=== PATIENT | male | born 1925 | race Caucasian/White ===

== ENCOUNTER 2017-03-21 13:35 | Inpatient (IN) ==
[2017-03-21] MEDS ORDERED: ZALEPLON 5 MG CAPSULE PO PRN (15:02)
[2017-03-21] MEDS ORDERED: POTASSIUM CHLORIDE 20 MEQ TABLET PO PRN (15:02)
[2017-03-21] MEDS ORDERED: BISACODYL 5 MG TABLET PO PRN (15:02)
[2017-03-21] MEDS ORDERED: DOCUSATE SODIUM 100 MG CAPSULE PO PRN (15:02)
[2017-03-21] MEDS ORDERED: ONDANSETRON 4 MG/2 ML VIAL IV PRN (15:02)
[2017-03-21] MEDS ORDERED: MAGNESIUM SULF RIDER 2 GM in PREMIX 1 EACH IV PRN (15:02)
[2017-03-21] MEDS ORDERED: MAGNESIUM SULF RIDER 4 GM in PREMIX 1 EACH IV PRN (15:02)
[2017-03-21] MEDS ORDERED: ACETAMINOPHEN 325 MG TABLET PO PRN (15:02)
[2017-03-21] MEDS ORDERED: diphenhydrAMINE CAP 25 MG CAPSULE PO PRN (15:17)
[2017-03-21 15:53] LABS: Basophils % 0.4 % (0.0-0.8); Eosinophils # 0.2 10*3/uL (0.0-0.87); Eosinophils % 2.2 % (0.00-10.9); Hematocrit 47.5 VOL% (42.0-52.0); Hemoglobin 16.2 GM/DL (14.0-18.0); Immature Granulocytes % 0.3 %; Immature Granulocytes Absolute 0.02 #; Lymphocytes % 13.8 % (21.2-54.2); Mean Corpuscular HGB Conc 34.1 GM/DL (32-36); Mean Corpuscular Hemoglobin 30 PG (27-34); Mean Corpuscular Volume 88.5 FL (87-102); Mean Platelet Volume 10.1 FL (9.6-12.0); Monocytes # 0.5 10*3/uL (0.11-0.8); Monocytes % 7.3 % (1.7-12.7); Neutrophils # 5.7 10*3/uL (1.4-7.4); Platelet Count 225 T/CUMM (130-400); Red Blood Count 5.37 MC/CUMM (3.8-5.5); Red Cell Distribution Width 12.2 % (9.3-17.3); White Blood Count 7.4 T/CUMM (4-12)
[2017-03-21 16:33] LABS: CKMB % 6.3 %
[2017-03-21 16:34] LABS: Troponin I Only 0.093 NG/ML (0.00-0.045)
[2017-03-21 16:39] LABS: Apearance,Urine CLEAR (Clear); Bilirubin,Urine Negative (Negative); Blood, Urine Small mg/dL (Negative); Glucose,Urine (UA) Negative (Negative); Ketones,Urine Negative (Negative); Mucus,Urine Occasional /LPF (Occasional); Nitrite,Urine Negative (Negative); Protein,Urine Negative; RBC,Urine 1 /HPF (0-4); Squamous Epithelial Cell,Urine Occasional /HPF (0-10); Urine Color Straw (Yellow); Urine Specific Gravity 1.004 (1.001-1.035); Urine Urobilinogen < 2.0 EU/DL (0.2-1.0); WBC,Urine 15 /HPF (0-6)
[2017-03-21 16:40] LABS: Albumin 3.1 G/DL (3.4-5.0); Calcium 8.8 MG/DL (8.5-10.1); Osmolality,Calculated 277.4 MOS/KG (273-304); Potassium 5.1 MMOL/L (3.5-5.1); Thyroid Stimulating Hormone 3.46 uIU/ml (0.358-3.74); Total Protein 6.3 G/DL (6.4-8.3)
[2017-03-21] MEDS: ALBUTEROL/IPRATROPIUM 3 ML NEB RESP TX SCH ×2 (18:00→20:09)
[2017-03-21] MEDS ORDERED: ASPIRIN 325 MG TABLET PO SCH ×2 (18:00→21:00)
[2017-03-21] MEDS: ALBUTEROL 2.5 MG/3 ML NEB RESP TX SCH ×3 (18:01→23:45)
[2017-03-21] MEDS ORDERED: ENOXAPARIN 80 MG/0.8 ML SYRINGE SUBCUT ONE (18:04)
[2017-03-21] MEDS: NITROGLYCERIN 2% OINT 1 INCH/GM PACK TOP SCH (18:28)
[2017-03-21] MEDS: FUROSEMIDE 40 MG/4 ML VIAL IV SCH (18:29)
[2017-03-21 18:35] LABS: CKMB % 5.6 %
[2017-03-21 18:36] LABS: Troponin I Only 0.187 NG/ML (0.00-0.045)
[2017-03-21] MEDS: PANTOPRAZOLE 40 MG TABLET PO SCH (21:13)
[2017-03-21] MEDS: LOVASTATIN 20 MG TABLET PO SCH (21:13)
[2017-03-21] MEDS: MAGNESIUM HYDROXIDE SUSP 30 ML UDCUP PO SCH (21:13)
[2017-03-21] MEDS: METOPROLOL TARTRATE 25 MG TABLET PO SCH (21:13)
[2017-03-21 22:27] LABS: CKMB % 4.5 %
[2017-03-21 22:31] LABS: Troponin I Only 0.249 NG/ML (0.00-0.045)
[2017-03-21] MEDS ORDERED: ALBUTEROL 2.5 MG/3 ML NEB RESP TX ONE (23:34)
[2017-03-22] MEDS: NITROGLYCERIN 2% OINT 1 INCH/GM PACK TOP SCH ×4 (01:02→17:59)
[2017-03-22] MEDS: ALBUTEROL 2.5 MG/3 ML NEB RESP TX SCH ×2 (03:07→17:10)
[2017-03-22 05:22] LABS: Basophils % 0.4 % (0.0-0.8); Eosinophils # 0.2 10*3/uL (0.0-0.87); Eosinophils % 2.9 % (0.00-10.9); Hematocrit 46.5 VOL% (42.0-52.0); Immature Granulocytes % 0.4 %; Immature Granulocytes Absolute 0.03 #; Lymphocytes # 1.3 10*3/uL (1.4-4.0); Lymphocytes % 16.4 % (21.2-54.2); Mean Corpuscular HGB Conc 34.4 GM/DL (32-36); Mean Corpuscular Hemoglobin 30 PG (27-34); Mean Corpuscular Volume 85.8 FL (87-102); Mean Platelet Volume 10.5 FL (9.6-12.0); Monocytes # 0.7 10*3/uL (0.11-0.8); Neutrophils # 5.6 10*3/uL (1.4-7.4); Neutrophils % 70.9 % (38.7-73.9); Platelet Count 220 T/CUMM (130-400); Red Blood Count 5.42 MC/CUMM (3.8-5.5); Red Cell Distribution Width 12.1 % (9.3-17.3); White Blood Count 7.9 T/CUMM (4-12)
[2017-03-22 05:50] LABS: Bilirubin,Total 1.5 MG/DL (0.2-1.0); Calcium 8.4 MG/DL (8.5-10.1); Osmolality,Calculated 274.7 MOS/KG (273-304); Potassium 3.7 MMOL/L (3.5-5.1); Risk Ratio 3.93; Total Protein 6.3 G/DL (6.4-8.3); VLDL CHOLESTEROL 19.8 MG/DL
[2017-03-22] MEDS: ALBUTEROL/IPRATROPIUM 3 ML NEB RESP TX SCH ×5 (07:25→19:08)
[2017-03-22] MEDS ORDERED: ASPIRIN 325 MG TABLET PO SCH (09:00)
[2017-03-22] MEDS: FUROSEMIDE 40 MG/4 ML VIAL IV SCH ×2 (09:53→17:14)
[2017-03-22] MEDS: PANTOPRAZOLE 40 MG TABLET PO SCH (09:56)
[2017-03-22] MEDS: LEVOTHYROXINE 25 MCG TABLET PO SCH (09:56)
[2017-03-22] MEDS: MAGNESIUM HYDROXIDE SUSP 30 ML UDCUP PO SCH ×2 (09:56→21:03)
[2017-03-22] MEDS: METOPROLOL TARTRATE 25 MG TABLET PO SCH ×2 (09:56→21:01)
[2017-03-22] MEDS: LISINOPRIL 20 MG TABLET PO SCH (09:56)
[2017-03-22] MEDS: ASPIRIN EC 81 MG TABLET PO SCH (10:51)
[2017-03-22] MEDS: LOVASTATIN 20 MG TABLET PO SCH (21:01)
[2017-03-23] MEDS: NITROGLYCERIN 2% OINT 1 INCH/GM PACK TOP SCH ×4 (01:48→18:35)
[2017-03-23] MEDS: ALBUTEROL/IPRATROPIUM 3 ML NEB RESP TX SCH ×7 (06:15→23:31)
[2017-03-23] MEDS: LEVOTHYROXINE 25 MCG TABLET PO SCH (06:26)
[2017-03-23] MEDS: FUROSEMIDE 40 MG/4 ML VIAL IV SCH ×2 (09:17→17:12)
[2017-03-23] MEDS: ASPIRIN EC 81 MG TABLET PO SCH (09:18)
[2017-03-23] MEDS: MAGNESIUM HYDROXIDE SUSP 30 ML UDCUP PO SCH ×2 (09:18→21:16)
[2017-03-23] MEDS: METOPROLOL TARTRATE 25 MG TABLET PO SCH ×2 (09:18→21:14)
[2017-03-23] MEDS: LISINOPRIL 20 MG TABLET PO SCH (09:18)
[2017-03-23] MEDS: PANTOPRAZOLE 40 MG TABLET PO SCH (09:18)
[2017-03-23] MEDS: methylPREDNISolone SOD SUC 40 MG/1 ML VIAL IV SCH ×2 (12:50→17:11)
[2017-03-23] MEDS: LOVASTATIN 20 MG TABLET PO SCH (21:14)
[2017-03-24] MEDS: NITROGLYCERIN 2% OINT 1 INCH/GM PACK TOP SCH ×3 (01:21→11:31)
[2017-03-24] MEDS: methylPREDNISolone SOD SUC 40 MG/1 ML VIAL IV SCH ×4 (01:44→19:00)
[2017-03-24] MEDS: ALBUTEROL/IPRATROPIUM 3 ML NEB RESP TX SCH ×5 (04:48→20:38)
[2017-03-24] MEDS: LEVOTHYROXINE 25 MCG TABLET PO SCH (06:12)
[2017-03-24] MEDS: LISINOPRIL 20 MG TABLET PO SCH (09:04)
[2017-03-24] MEDS: ASPIRIN EC 81 MG TABLET PO SCH (09:04)
[2017-03-24] MEDS: METOPROLOL TARTRATE 25 MG TABLET PO SCH ×2 (09:04→21:31)
[2017-03-24] MEDS: MAGNESIUM HYDROXIDE SUSP 30 ML UDCUP PO SCH ×2 (09:04→21:35)
[2017-03-24] MEDS: FUROSEMIDE 40 MG/4 ML VIAL IV SCH ×2 (09:05→16:27)
[2017-03-24] MEDS: PANTOPRAZOLE 40 MG TABLET PO SCH (09:05)
[2017-03-24] MEDS: ISOSORBIDE MONONITRATE 30 MG TABLET PO SCH (14:02)
[2017-03-24] MEDS: LOVASTATIN 20 MG TABLET PO SCH (21:31)
[2017-03-25] MEDS: ALBUTEROL/IPRATROPIUM 3 ML NEB RESP TX SCH ×6 (01:05→21:02)
[2017-03-25] MEDS: methylPREDNISolone SOD SUC 40 MG/1 ML VIAL IV SCH ×3 (01:55→19:16)
[2017-03-25] MEDS: LEVOTHYROXINE 25 MCG TABLET PO SCH (06:30)
[2017-03-25] MEDS ORDERED: guaiFENesin/DM ER 600-30 MG TABLET PO PRN (14:46)
[2017-03-25] MEDS: ISOSORBIDE MONONITRATE 30 MG TABLET PO SCH (15:06)
[2017-03-25] MEDS: LISINOPRIL 20 MG TABLET PO SCH (15:06)
[2017-03-25] MEDS: PANTOPRAZOLE 40 MG TABLET PO SCH (15:06)
[2017-03-25] MEDS: ASPIRIN EC 81 MG TABLET PO SCH (15:06)
[2017-03-25] MEDS: FUROSEMIDE 40 MG TABLET PO SCH (15:06)
[2017-03-25] MEDS: METOPROLOL TARTRATE 25 MG TABLET PO SCH ×2 (15:06→20:57)
[2017-03-25] MEDS: MAGNESIUM HYDROXIDE SUSP 30 ML UDCUP PO SCH ×2 (15:07→20:59)
[2017-03-25 16:45] LABS: Apearance,Urine Slightly Hazy (Clear); Bacteria,Urine Moderate /HPF (Few); Bilirubin,Urine Negative (Negative); Blood, Urine Small mg/dL (Negative); Glucose,Urine (UA) Negative (Negative); Ketones,Urine Negative (Negative); Mucus,Urine Occasional /LPF (Occasional); Nitrite,Urine Negative (Negative); Protein,Urine Negative; RBC,Urine 12 /HPF (0-4); Squamous Epithelial Cell,Urine Occasional /HPF (0-10); Urine Color Yellow (Yellow); Urine Specific Gravity 1.023 (1.001-1.035); Urine Urobilinogen < 2.0 EU/DL (0.2-1.0); WBC,Urine 61 /HPF (0-6)
[2017-03-25] MEDS: LOVASTATIN 20 MG TABLET PO SCH (20:57)
[2017-03-25] MEDS ORDERED: MAGNESIUM SULF RIDER 2 GM in PREMIX 1 EACH IV PRN (23:44)
[2017-03-25] MEDS ORDERED: DIAZEPAM 5 MG TABLET PO ONE (23:44)
[2017-03-25] MEDS ORDERED: diphenhydrAMINE CAP 25 MG CAPSULE PO ONE (23:44)
[2017-03-25] MEDS ORDERED: POTASSIUM CHLORIDE RIDER 10 MEQ in PREMIX 1 EACH IV PRN (23:44)
[2017-03-26] MEDS: methylPREDNISolone SOD SUC 40 MG/1 ML VIAL IV SCH ×3 (01:29→18:08)
[2017-03-26] MEDS: ALBUTEROL/IPRATROPIUM 3 ML NEB RESP TX SCH ×7 (02:35→23:49)
[2017-03-26] MEDS: LEVOTHYROXINE 25 MCG TABLET PO SCH (06:10)
[2017-03-26] MEDS ORDERED: DIAZEPAM 5 MG TABLET PO ONE (08:30)
[2017-03-26] MEDS: ASPIRIN EC 81 MG TABLET PO SCH (12:16)
[2017-03-26] MEDS: METOPROLOL TARTRATE 25 MG TABLET PO SCH ×2 (12:17→21:27)
[2017-03-26] MEDS: LISINOPRIL 20 MG TABLET PO SCH (12:17)
[2017-03-26] MEDS ORDERED: LIDOCAINE 1% 20 ML VIAL ONE (12:19)
[2017-03-26] MEDS ORDERED: HEPARIN/NACL 0.9% 2 UNITS/ML 2,000 ML IV ONE (12:19)
[2017-03-26] MEDS ORDERED: VERAPAMIL 5 MG/2 ML VIAL ONE (12:39)
[2017-03-26] MEDS ORDERED: NITROGLYCERIN DRIP 50 MG/250 ML BOTTLE IV ONE (12:39)
[2017-03-26] MEDS ORDERED: BIVALIRUDIN 250 MG VIAL IV ONE (13:01)
[2017-03-26] MEDS ORDERED: TICAGRELOR 90 MG TABLET ONE (13:12)
[2017-03-26] MEDS ORDERED: SODIUM CHLORIDE 0.9% 1,000 ML IV SCH (14:00)
[2017-03-26] MEDS: FUROSEMIDE 40 MG TABLET PO SCH (15:50)
[2017-03-26] MEDS: PANTOPRAZOLE 40 MG TABLET PO SCH (15:50)
[2017-03-26] MEDS: ROSUVASTATIN 20 MG TABLET PO SCH (15:50)
[2017-03-26] MEDS: ISOSORBIDE MONONITRATE 30 MG TABLET PO SCH (15:50)
[2017-03-26] MEDS: MAGNESIUM HYDROXIDE SUSP 30 ML UDCUP PO SCH ×2 (15:52→21:27)
[2017-03-26] MEDS: TICAGRELOR 90 MG TABLET PO SCH (21:27)
[2017-03-27] MEDS: methylPREDNISolone SOD SUC 40 MG/1 ML VIAL IV SCH ×2 (03:01→09:51)
[2017-03-27] MEDS: ALBUTEROL/IPRATROPIUM 3 ML NEB RESP TX SCH ×3 (03:47→12:01)
[2017-03-27 05:13] LABS: Basophils % 0.1 % (0.0-0.8); Hematocrit 43.5 VOL% (42.0-52.0); Hemoglobin 15.1 GM/DL (14.0-18.0); Immature Granulocytes % 2.1 %; Immature Granulocytes Absolute 0.33 #; Lymphocytes # 0.4 10*3/uL (1.4-4.0); Lymphocytes % 2.3 % (21.2-54.2); Mean Corpuscular HGB Conc 34.7 GM/DL (32-36); Mean Corpuscular Hemoglobin 30 PG (27-34); Mean Corpuscular Volume 87.3 FL (87-102); Mean Platelet Volume 10.3 FL (9.6-12.0); Monocytes # 0.6 10*3/uL (0.11-0.8); Monocytes % 3.5 % (1.7-12.7); Neutrophils # 14.6 10*3/uL (1.4-7.4); Platelet Count 282 T/CUMM (130-400); Red Blood Count 4.98 MC/CUMM (3.8-5.5); Red Cell Distribution Width 12.2 % (9.3-17.3); White Blood Count 15.9 T/CUMM (4-12)
[2017-03-27 05:44] LABS: Giant Platelets Few; Hypochromasia 1+; Lymphocytes 2 % (20-55); Ovalocytes Slight; Platelet Estimate Adequate; Segmented Neutrophils 94 % (50-85); Total Cells Counted 100
[2017-03-27 05:53] LABS: Blood Urea Nitrogen 35 MG/DL (7-18); Calcium 8.2 MG/DL (8.5-10.1); Glucose 147 MG/DL (74-106); Osmolality,Calculated 287.5 MOS/KG (273-304); Potassium 4.3 MMOL/L (3.5-5.1); Sodium 139 MMOL/L (136-145)
[2017-03-27] MEDS: LEVOTHYROXINE 25 MCG TABLET PO SCH (06:15)
[2017-03-27] MEDS: ISOSORBIDE MONONITRATE 30 MG TABLET PO SCH (09:49)
[2017-03-27] MEDS: FUROSEMIDE 40 MG TABLET PO SCH (09:49)
[2017-03-27] MEDS: ROSUVASTATIN 20 MG TABLET PO SCH (09:49)
[2017-03-27] MEDS: LISINOPRIL 20 MG TABLET PO SCH (09:49)
[2017-03-27] MEDS: METOPROLOL TARTRATE 25 MG TABLET PO SCH (09:50)
[2017-03-27] MEDS: PANTOPRAZOLE 40 MG TABLET PO SCH (09:50)
[2017-03-27] MEDS: TICAGRELOR 90 MG TABLET PO SCH (09:50)
[2017-03-27] MEDS: ASPIRIN EC 81 MG TABLET PO SCH (09:50)
[2017-03-27] MEDS: MAGNESIUM HYDROXIDE SUSP 30 ML UDCUP PO SCH (09:50)
[2017-03-27] MEDS ORDERED: cefTRIAXone 1,000 MG in SYRINGE 1 EACH IV ONE (09:55)
[2017-03-27] MEDS ORDERED: CARVEDILOL 3.125 MG TABLET PO SCH (10:00)
[2017-03-27] MEDS ORDERED: AMINOPHYLLINE 250 MG in SODIUM CHLORIDE 0.9% 100 ML IV ONE (10:22)
[2017-03-27] MEDS ORDERED: LEVOFLOXACIN 250 MG TABLET PO SCH (10:30)
[2017-03-27] MEDS ORDERED: MONTELUKAST 10 MG TABLET PO SCH (10:30)
[2017-03-27 11:17] LABS: Calcium 8.5 MG/DL (8.5-10.1); Osmolality,Calculated 291.8 MOS/KG (273-304); Potassium 4.6 MMOL/L (3.5-5.1)
[2017-03-27 11:54] VITALS: BP 124/68
[2017-03-27] MEDS ORDERED: ALBUTEROL 2 MG TABLET PO SCH ×2 (14:00)
[2017-03-27] MEDS ORDERED: AMINOPHYLLINE 500 MG in SODIUM CHLORIDE 0.9% 480 ML IV SCH (15:52)
[2017-03-27] MEDS ORDERED: THEOPHYLLINE ER (24 HR) 200 MG CAPSULE PO SCH (17:00)
== END 2017-03-27 15:30 | disposition home or self-care (01) | DRG 246 ==
LOC: N.TELEN 15:07 → INTOOBSV 15:07
PROVIDERS: ADMIT Internal Medicine Cardiovascular Disease; ATTEND Internal Medicine Cardiovascular Disease
PROC: CLCCHCL (ICD-10-PCS; 2017-03-26 12:15)